=== PATIENT | male | born 1960 | race Caucasian/White ===

== ENCOUNTER 2020-10-16 13:44 | Emergency (ER) | payer OTHER ==
[~2020-10-16] VITALS: Ht 167.6 cm; Wt 69.4 kg
[2020-10-16 13:47] VITALS: BP 183/98
--- NOTE | 2020-10-16 13:53 | NUR ---
Radha diaz in [facility] - 10/16/20 at 1353 by [facility] PT TAKEN TO BED 8.
--- NOTE | 2020-10-16 13:53 | NUR ---
PATIENT AMBULATED WITH STEADY GAIT TO BED 8.
[2020-10-16] MEDS ORDERED: IBUPROFEN 600 MG TAB PO ONE (14:00)
--- NOTE | 2020-10-16 14:10 | NUR ---
pt taken to xr.
--- NOTE | 2020-10-16 15:08 | NUR ---
pt laying in bed in high fowlers position. a/o x 4. does not appear to be in any distress at this time. VSS
[2020-10-16] MEDS ORDERED: IBUP-2213 PO (15:57)
[2020-10-16 16:22] VITALS: BP 149/71
--- NOTE | 2020-10-16 16:51 | NUR ---
applied short posterior splint to left ankle without any issues
--- NOTE | 2020-10-16 16:52 | NUR ---
crutch education done by Marv HANLEY. pt understands willingly and able to demonstrate back teaching.
--- NOTE | 2020-10-16 16:52 | NUR ---
Marv HANLEY applied Posterior left ankle splint on pt. CMS intact. cap refill < 3 seconds.
== END 2020-10-16 17:03 | disposition home or self-care (01) ==
LOC: MED 13:44
DX: S82.292G Other fracture of shaft of left tibia, subsequent encounter for closed fracture with delayed healing (principal); I10 Essential (primary) hypertension; W22.8XXD Striking against or struck by other objects, subsequent encounter
CPT/HCPCS: 29515; 73610; 73630; 99283; 99284

== ENCOUNTER 2022-01-09 19:30 | Emergency (ER) | payer OTHER ==
[~2022-01-09] VITALS: Ht 170.2 cm; Wt 70.3 kg
[~2022-01-09 19:30] MED LIST: IBUP-2213 PO
[2022-01-09 19:47] VITALS: BP 109/97
--- NOTE | 2022-01-09 21:14 | NUR ---
PT TAKEN TO ER BED 7
[2022-01-09] MEDS ORDERED: ACET-8386 PO (21:51)
[2022-01-09] MEDS ORDERED: HYDROcodone/APAP 5/325 MG 1 TAB TAB PO ONE (21:55)
--- NOTE | 2022-01-09 21:55 | NUR ---
PT IN BED SIDE RAILS UP X1.
--- NOTE | 2022-01-09 22:15 | NUR ---
PENDING DC PAPERWORK
[2022-01-09 22:52] VITALS: BP 109/97
--- NOTE | 2022-01-09 22:58 | NUR ---
SPINT APPLIED TO RIGHT LOWER LEG.
--- NOTE | 2022-01-09 23:00 | NUR ---
Chart checked and completed.
== END 2022-01-09 22:52 | disposition home or self-care (01) ==
LOC: MED 19:30
DX: S82.51XA Displaced fracture of medial malleolus of right tibia, initial encounter for closed fracture (principal); I10 Essential (primary) hypertension; E78.5 Hyperlipidemia, unspecified; W11.XXXA Fall on and from ladder, initial encounter; Y93.89 Activity, other specified; Y92.89 Other specified places as the place of occurrence of the external cause; Y99.8 Other external cause status
CPT/HCPCS: 29515; 73590; 73610; 99284

== ENCOUNTER 2022-12-18 10:06 | Emergency (ER) | payer OTHER ==
[~2022-12-18] VITALS: Ht 160 cm; Wt 70.3 kg
[~2022-12-18 10:06] MED LIST changes: +ACET-8905 PO
[2022-12-18 10:36] VITALS: BP 169/75
[2022-12-18] MEDS ORDERED: TETRACAINE HCL/PF 0.5% OPTH 4 ML BTL OP ONE (11:30)
[2022-12-18] MEDS ORDERED: FLUORESCEIN OPTH STRIP 1 MG OP ONE (11:30)
--- NOTE | 2022-12-18 12:31 | NUR ---
DR DIANE COMPLETING EYE EXAM
[2022-12-18] MEDS ORDERED: POLY10DR5 OP (12:44)
--- NOTE | 2022-12-18 12:59 | NUR ---
Patient discharged with v/s stable. Written and verbal after care instructions given and explained. Patient verbalized understanding. Ambulatory with steady gait. All questions addressed prior to discharge. Advised to follow up with PMD.
== END 2022-12-18 12:58 | disposition home or self-care (01) ==
LOC: MED 10:06
DX: H57.11 Ocular pain, right eye (principal); I10 Essential (primary) hypertension; E78.5 Hyperlipidemia, unspecified; Z79.899 Other long term (current) drug therapy
CPT/HCPCS: 99283